=== PATIENT | male | born 1960 | race Caucasian/White ===

== ENCOUNTER 2016-05-21 14:21 | Observation (INO) | payer MEDICAID ==
[~2016-05-21] VITALS: Ht 190.5 cm; Wt 117.0 kg
[~2016-05-21 14:21] MED LIST: LORTAB 5-325 MG1 TAB PO; MEDDOSEPAK PO; NO HOME MEDS
[2016-05-21 15:49] LABS: HEMATOCRIT 42.4 % (39.0-50.0); HEMOGLOBIN 15.1 g/dl (14.0-18.0); IMMATURE GRANULOCYTES 0.4 % (0.0-1.0); MEAN CELL VOLUME 89.3 fL CALC (80.0-100.0); MEAN CORPUSCULAR HGB 31.8 pG CALC (26.0-32.0); MEAN CORPUSCULAR HGB CONC 35.6 g/L CALC (32.0-36.0); NEUT# 2.69 thou/uL (1.82-7.42); RED BLOOD COUNT 4.75 mill/uL (4.70-6.10); RED CELL DISTRI WIDTH 12.4 % (11.5-15.5)
[2016-05-21 15:59] LABS: ALBUMIN 4.1 g/dL (3.2-5.0); ALKALINE PHOSPHATASE 60 u/l (38-126); ANION GAP 15 (6-22 (CALC)); BILIRUBIN, TOTAL 0.5 mg/dL (0.0-1.4); BUN 11 mg/dL (9-20); BUN/CREATININE RATIO 17 (12-20 (CALC)); CALCIUM 8.8 mg/dL (8.4-10.2); CARBON DIOXIDE 25 mmol/l (22-30); CHLORIDE 107 mmol/l (95-108); CREATININE 0.7 mg/dL (0.7-1.3); GFR > 60 ML/MIN (>=60 (CALC)); GFR FOR AFR.AMER. > 60 ML/MIN (>=60 (CALC)); GLUCOSE 113 mg/dL (75-110); POTASSIUM 4.2 mmol/l (3.5-5.1); SGOT/AST 18 u/l (17-59); SGPT/ALT 35 u/l (21-72); SODIUM 142 mmol/l (137-146); TOTAL PROTEIN 6.9 g/dL (6.3-8.2)
--- NOTE | 2016-05-21 16:02 | NUR ---
PT WITH IV ESTABLISHED, BLOOD DRAWN, PCXR DONE, AWAITS RESULTS.
[2016-05-21 16:11] LABS: MYOGLOBIN 22 ng/mL (0 - 121)
--- NOTE | 2016-05-21 16:56 | NUR ---
PT AWARE OF PENDING ADMISSION, AMBULATORY IN ROOM AND HALLWAY.
--- NOTE | 2016-05-21 17:08 | NUR ---
REPORT PROVIDED TO RACHEL LLOYD TO FLOOR SOON.
--- NOTE | 2016-05-21 17:15 | NUR ---
PT AMBULATORY TO ROOM 289 ACCOMPANIED BY STAFF; PT STATES THAT HE HAS BEEN HAVING "CHEST TIGHTNESS" FOR A FEW WEEKS; PT STATES CAME TO ER TODAY BECAUSE HE HAS SLEPT 30 OF THE PAST 48 HOURS AND THE TIGHTNESS IS GETTING WORSE; TELE MONITOR IN PLACE; PT ORIENTED TO ROOM AND CALL SYSTEM; WILL CONTINUE TO MONITOR.
[2016-05-21 17:18] VITALS: BP 116/73
--- NOTE | 2016-05-21 18:00 | NUR ---
TRAFFIC I MANAGER IN FOR BLOOD DRAW
--- NOTE | 2016-05-21 18:40 | NUR ---
PT REQUESTING TO GO OUTSIDE FOR CIAGARETTE AFTER NICOTINE PATCH APPLIED. INFORMING PT THAT PATCH IS TO FACILIATE HIM NOT TO SMAOKE CIAGARETES, THIS IS A NON SMOKING FACILITY, AND THAT WILL HAVE TO REQUIRE A MD ORDER FOR HIM TO LEAVE THE UNIT; 1849 INFORMED BY ANOTHER NURSE THAT PT LEFT UNIT; 1904 PT AMBULATORY TO ROOM FROM OUTSIDE; REPORT GIVEN TO Andrew KELLY RN; SHE WILL DISCUSS WITH MD AND PT ABOUT PT LEAVING THE UNIT.
[2016-05-21 20:02] VITALS: BP 125/71
--- NOTE | 2016-05-21 20:15 | NUR ---
PT RESTING IN RECLINER WITH FRIEND AT BEDSIDE;PT EDUCATED THAT HE CAN NOT GO DOWN STAIRS TO SMOKE A CIGARETTE AND THAT HE MUST SIGN AMA IF HE CHOOSES OTHERWISE PER MD;PT VERBALIZES UNDERSTANDING;ASSESSMENT COMPLETED;IV SITE TO RT HAND FLUSHED AND PATENT;TELE MONITOR IN PLACE READING SR 78;SKIN INTACT;PT AMBULATES WITH A STEADY GAIT;PT VERBALIZES THE DESIRE TO TALK WITH SOMEONE ABOUT SMOKING CESSATION;PT DENIES ANY OTHER NEEDS AT THIS TIME;PT EDUCATED TO CALL FOR ASSISTANCE IF NEEDED;BED IN LOWEST POSITION WITH CALL LIGHT IN REACH;WILL CONTINUE TO MONITOR
[2016-05-21 23:50] VITALS: BP 109/68
--- NOTE | 2016-05-22 | NUR ---
PT APPEARS TO BE SLEEPINF AT THIS TIME;NO S/S OF DISTRESS NOTED;TELE MONITOR IN PLACE;BED IN LOWEST POSITION WITH CALL LIGHT IN REACH;WILL CONTINUE TO MONITOR
[2016-05-22 04:30] VITALS: BP 104/60
--- NOTE | 2016-05-22 04:35 | NUR ---
PT REQUESTS TO GO TO THE [facility]ENDING [facility]ACH[facility]ES FOR COFFEE;PT EDUCATED THAT FRESH COFFEE IS AT THE NURSES STATION AND CAN BE PROVIDED;PT AGREES STATING "YOU KNOW I WANNA GO SMOKE";PT AGREES TO STAY IN HIS ROOM AND DENIES THE NEED FOR AN AMA FORM;TELE MONITOR IN PLACE;PT DENIES ANY PAIN OR DISCOMFORT;PT TOLD TO CALL FOR ASSISTANCE IF NEEDED;BED IN LOWEST POSITION WITH CALL LIGHT IN REACH;WILL CONTINUE TO MONITOR
[2016-05-22 07:41] VITALS: BP 114/69
--- NOTE | 2016-05-22 07:52 | NUR ---
PT SITTING IN CHAIR; PT STATES DIDN'T SLEEP WELL LAST NIGHT; TELE MONITOR IN PLACE; CALL [place]GADO WITHIN REACH; WILL CONTINUE TO MONITOR.
--- NOTE | 2016-05-22 08:32 | NUR ---
PT AMBULATORY IN THE HALLS;
--- NOTE | 2016-05-22 08:52 | NUR ---
PT GIVEN PERMISSION BY TO GO OUTSIDE; RELEASE OF LIABILITY FORM SIGN; PT AMBULATORY OFF THE FLOOR
--- NOTE | 2016-05-22 09:00 | NUR ---
PT RETURN TO ROOM
[2016-05-22] MEDS ORDERED: METFORMIN500 MG PO (09:20)
[2016-05-22] MEDS ORDERED: MULTIVITAMI1 PO (09:20)
[2016-05-22] MEDS ORDERED: VITAMIN B-12500 MCG PO (09:20)
[2016-05-22] MEDS ORDERED: ASPIRIN EC81 MG PO (09:20)
--- NOTE | 2016-05-22 09:20 | NUR ---
DR. GOLD IN TO SEE PT; PLAN OF CARE DISCUSSED
[2016-05-22 10:03] LABS: BARBITURATES NEGATIVE (NEGATIVE); COCAINE NEGATIVE (NEGATIVE); METHADONE NEGATIVE (NEGATIVE); OXCYCODONE NEGATIVE (NEGATIVE); TETRAHYDROCANNABIONOL NEGATIVE (NEGATIVE); TRICYLIC ANTIDEPRESSANTS NEGATIVE (NEGATIVE)
== END 2016-05-22 10:02 | disposition home or self-care (01) | DRG 313 ==
LOC: ENPENDDIS → ED 14:21 → ED-I 16:10 → ED 16:22 → MS2 16:23
PROVIDERS: Emergency Medicine; Internal Medicine; ADMIT Internal Medicine; ATTEND Internal Medicine
DX: R07.89 Other chest pain (principal); J44.9 Chronic obstructive pulmonary disease, unspecified; R53.83 Other fatigue; E11.9 Type 2 diabetes mellitus without complications; F17.210 Nicotine dependence, cigarettes, uncomplicated
CPT/HCPCS: G0378

== ENCOUNTER 2018-01-29 11:19 | Emergency (ER) | payer OTHER, MEDICAID ==
[~2018-01-29] VITALS: Ht 190.5 cm; Wt 125.0 kg
[~2018-01-29 11:19] MED LIST changes: +ASPIRIN EC81 MG PO; +METFORMIN500 MG PO; +MULTIVITAMI1 PO; +VITAMIN B-12500 MCG PO
[2018-01-29] MEDS ORDERED: MOTRIN400 MG PO (12:11)
[2018-01-29] MEDS ORDERED: VOLTAREN1%GEL TOP (12:11)
[2018-01-29] MEDS ORDERED: METFORMIN HCL1000 MG PO (12:12)
[2018-01-29] MEDS ORDERED: SYMBICORT1 AE1 IN (12:12)
[2018-01-29] MEDS ORDERED: BUPROPION150 M3 PO (12:12)
[2018-01-29] MEDS ORDERED: CYCLOBENZAPR5 MG PO (12:34)
[2018-01-29 12:40] VITALS: BP 131/74
== END 2018-01-29 12:40 | disposition home or self-care (01) | DRG 563 ==
LOC: ED 11:19
DX: S39.012A Strain of muscle, fascia and tendon of lower back, initial encounter (principal); X50.0XXA Overexertion from strenuous movement or load, initial encounter; Y93.H3 Activity, building and construction; Y92.61 Building [any] under construction as the place of occurrence of the external cause; Y99.0 Civilian activity done for income or pay; M54.6 Pain in thoracic spine; M54.5 Low back pain

== ENCOUNTER 2019-08-10 19:21 | Emergency (ER) | payer MEDICAID ==
[~2019-08-10 19:21] MED LIST changes: +BUPROPION150 M3 PO; +BUPROPION150 M4 PO; +CYCLOBENZAPR5 MG PO; +GLIPIZIDE5 MG PO; +GLUCOPHAGE500 MG PO; +LIPITOR20 M1 PO; +MELOXICAM7.5 MG PO; +METFORMIN HCL1000 MG PO; +MOTRIN400 MG PO; +NITROGLYCERIN0.4 MG PO; +SYMBICORT1 AE1 IN; +TAMSULOSIN HCL0.4 MG PO; +TERBINAFINE HC250 MG PO; +VOLTAREN1%GEL TOP
[2019-08-10] MEDS ORDERED: MEDDOSEPAK PO ×2 (20:53)
[2019-08-10 21:07] VITALS: BP 148/76
[2019-09-28] MEDS ORDERED: DICLOFENAC75 MG PO (10:20)
[2019-09-28] MEDS ORDERED: HYDROCODONE/ACE1 TAB PO ×2 (10:23→10:24)
[2019-11-23] MEDS ORDERED: HYDROCODONE/ACE1 TAB PO (10:18)
== END 2019-08-10 21:17 | disposition home or self-care (01) ==
LOC: ED 19:21
DX: M54.5 Low back pain (principal); G89.29 Other chronic pain; E11.9 Type 2 diabetes mellitus without complications; F17.200 Nicotine dependence, unspecified, uncomplicated

== ENCOUNTER 2019-09-14 09:25 | Emergency (ER) | payer MEDICAID ==
[~2019-09-14] VITALS: Ht 190.5 cm; Wt 111.4 kg
[2019-09-14] MEDS ORDERED: FLEXERIL5 MG PO (09:51)
[2019-09-14] MEDS ORDERED: TORADOL PO ×2 (11:21)
[2019-09-14] MEDS ORDERED: VOLTAREN1%GEL TOP ×2 (11:22)
[2019-09-14 11:28] VITALS: BP 128/66
[2019-09-28] MEDS ORDERED: DICLOFENAC75 MG PO (10:20)
[2019-09-28] MEDS ORDERED: HYDROCODONE/ACE1 TAB PO ×2 (10:23→10:24)
[2019-11-23] MEDS ORDERED: HYDROCODONE/ACE1 TAB PO (10:18)
== END 2019-09-14 11:30 | disposition home or self-care (01) ==
LOC: ED 09:25
DX: M54.42 Lumbago with sciatica, left side (principal); E11.9 Type 2 diabetes mellitus without complications; J43.9 Emphysema, unspecified; F17.210 Nicotine dependence, cigarettes, uncomplicated

== ENCOUNTER 2019-09-23 08:07 | Emergency (ER) | payer MEDICAID ==
[~2019-09-23] VITALS: Ht 190.5 cm; Wt 111.4 kg
[~2019-09-23 08:07] MED LIST changes: +FLEXERIL5 MG PO; +TORADOL PO
[2019-09-23] MEDS ORDERED: TORADOL PO ×2 (08:40)
[2019-09-23 08:46] VITALS: BP 155/93
[2019-09-28] MEDS ORDERED: DICLOFENAC75 MG PO (10:20)
[2019-09-28] MEDS ORDERED: HYDROCODONE/ACE1 TAB PO ×2 (10:23→10:24)
[2019-11-23] MEDS ORDERED: HYDROCODONE/ACE1 TAB PO (10:18)
== END 2019-09-23 08:53 | disposition home or self-care (01) ==
LOC: ED 08:07
DX: M54.42 Lumbago with sciatica, left side (principal); E11.9 Type 2 diabetes mellitus without complications; J43.9 Emphysema, unspecified; F17.200 Nicotine dependence, unspecified, uncomplicated

== ENCOUNTER 2020-03-03 12:10 | Emergency (ER) | payer MEDICAID ==
[~2020-03-03] VITALS: Ht 190.5 cm; Wt 109.0 kg
[~2020-03-03 12:10] MED LIST changes: +DICLOFENAC75 MG PO; +HYDROCODONE/ACE1 TAB PO
[2020-03-03 12:15] VITALS: BP 132/69
== END 2020-03-03 13:28 | disposition left against medical advice (07) ==
LOC: ED 12:10
DX: L02.511 Cutaneous abscess of right hand (principal); M79.5 Residual foreign body in soft tissue; E11.9 Type 2 diabetes mellitus without complications; J43.9 Emphysema, unspecified; F17.210 Nicotine dependence, cigarettes, uncomplicated; T50.906A Underdosing of unspecified drugs, medicaments and biological substances, initial encounter; Z91.128 Patient's intentional underdosing of medication regimen for other reason; Z91.19 Patient's noncompliance with other medical treatment and regimen

== ENCOUNTER 2021-08-16 11:45 | Emergency (ER) | payer MEDICAID | END 2021-08-16 14:00 | disposition left against medical advice (07) | DRG 951 | LOC: ED 11:45 → LWOBS 12:26 | DX: Z53.21 Procedure and treatment not carried out due to patient leaving prior to being seen by health care provider (principal) ==

== ENCOUNTER 2024-02-11 11:04 | Emergency (ER) | payer MEDICAID ==
[~2024-02-11] VITALS: Ht 190.5 cm; Wt 102.0 kg
[~2024-02-11 11:04] MED LIST changes: +METFORMIN500 M2 PO; +TAMSULOSIN0.4 MG PO; +VIAGRA100 MG PO
[2024-02-11 11:45] VITALS: BP 112/71
[2024-02-11 12:00] VITALS: BP 121/67
[2024-02-11 12:15] VITALS: BP 112/72
[2024-02-11 12:31] VITALS: BP 120/72
[2024-02-11] MEDS ORDERED: ORPHENADRINE CITRATE 30 MG/ML AMP IM ONE (13:00)
[2024-02-11] MEDS ORDERED: HYDROmorphone HCL 2 MG/AMP IV ONE (13:00)
[2024-02-11] MEDS ORDERED: ONDANSETRON 4 MG/TAB ODT SL ONE (13:00)
[2024-02-11] MEDS ORDERED: LYRICA75 MG PO (14:00)
[2024-02-11] MEDS ORDERED: LORTAB 5/3255 MG PO (14:00)
[2024-02-11] MEDS ORDERED: MEDDOSEPAK PO (14:00)
[2024-02-11] MEDS ORDERED: NAPROXEN500 MG PO (14:00)
[2024-02-11 14:18] VITALS: BP 120/72
== END 2024-02-11 14:24 | disposition home or self-care (01) ==
LOC: ED 11:04
DX: R09.1 Pleurisy (principal); E11.9 Type 2 diabetes mellitus without complications; J43.9 Emphysema, unspecified; F17.200 Nicotine dependence, unspecified, uncomplicated; Z79.84 Long term (current) use of oral hypoglycemic drugs
CPT/HCPCS: J1171; J2360

== ENCOUNTER 2024-03-02 11:21 | Emergency (ER) | payer MEDICAID ==
[~2024-03-02] VITALS: Ht 190.5 cm; Wt 100.0 kg
[2024-03-02] VITALS (7 sets, daily range): BP systolic 112–141; BP diastolic 71–79
[~2024-03-02 11:21] MED LIST changes: +LORTAB 5/3255 MG PO; +LYRICA75 MG PO; +NAPROXEN500 MG PO
[2024-03-02 12:27] LABS: BASO% 0.8 % (0-3); HEMATOCRIT 43.4 % (39.0-50.0); HEMOGLOBIN 15.1 g/dl (14.0-18.0); IMMATURE GRANULOCYTES 0.2 % (0.0-5.0); LYMPH% 29.5 % (15-41); MEAN CELL VOLUME 89.7 fL CALC (80.0-100.0); MEAN CORPUSCULAR HGB 31.2 pG CALC (26.0-32.0); MEAN CORPUSCULAR HGB CONC 34.8 g/dL CAL (32.0-36.0); MONO% 8.2 % (2-13); NEUT# 3.63 thou/uL (1.82-7.42); NEUT% 58.3 % (42-76); RED BLOOD COUNT 4.84 mill/uL (4.70-6.10); RED CELL DISTRI WIDTH 12.4 % (11.5-15.5)
[2024-03-02 12:45] LABS: ALBUMIN 4.4 g/dL (3.2-5.0); ALKALINE PHOSPHATASE 68 u/l (38-126); ANION GAP 9 (6-22 (CALC)); BILIRUBIN, TOTAL 0.5 mg/dL (0.2-1.3); CARBON DIOXIDE 27 mmol/l (22-30); CHLORIDE 105 mmol/l (95-108); POTASSIUM 4.1 mmol/l (3.5-5.1); SGOT/AST 23 u/l (19-48); SODIUM 136 mmol/l (137-146); TOTAL PROTEIN 6.8 g/dL (6.3-8.2)
[2024-03-02 12:49] LABS: BUN 10 mg/dL (8-23); BUN/CREATININE RATIO 17 (12-20 (CALC)); CREATININE 0.6 mg/dL (0.7-1.3); ESTIMATED GFR 109 ML/MIN (>=90 (CALC))
[2024-03-02] MEDS ORDERED: ONDANSETRON HCl 4 MG/2 ML SDV IV ONE (13:10)
[2024-03-02] MEDS ORDERED: MORPHINE SULFATE 4 MG/ML VIAL IV ONE (13:10)
[2024-03-02] MEDS ORDERED: DiphenhydrAMINE HCL 50 MG/ML SDV IV ONE (13:30)
[2024-03-02] MEDS ORDERED: methylPREDNISolone SODIUM SUCC 125 MG/2 ML SDV IV ONE (13:30)
[2024-03-02] MEDS ORDERED: FAMOTIDINE 10MG/ML 2ML SDV IV ONE (13:30)
[2024-03-02] MEDS ORDERED: LORTAB 1010 MG PO (14:08)
== END 2024-03-02 14:32 | disposition home or self-care (01) ==
LOC: ED 11:21
PROVIDERS: Family Medicine
DX: E11.40 Type 2 diabetes mellitus with diabetic neuropathy, unspecified (principal); J43.9 Emphysema, unspecified; F17.210 Nicotine dependence, cigarettes, uncomplicated; Z79.84 Long term (current) use of oral hypoglycemic drugs; R94.31 Abnormal electrocardiogram [ECG] [EKG]
CPT/HCPCS: J1200; J2405; Q9967